=== PATIENT | female | born 1995 | race American Indian/Alaskan Native ===

== ENCOUNTER 2018-05-15 15:11 | Emergency (ER) | payer MEDICAID, OTHER ==
--- NOTE | 2018-05-15 15:48 | ED PDOC ---
Arrival/HPI - General Time Seen by Provider: 05/15/18 15:18 Historian: Patient - History of Present Illness Narrative History of Present Illness (Text): 05/15/18 15:44 22 y/o female, no significant pmh, , LMP 01/28/2018, approx. 16 weeks , last bowel movement this morning, c/o epigastric pain with nausea/ vomiting started today. Aching pain, on and off, epigastric pain, no flank pain , no rash, no diarrhea, no fever or chills, no headache or neck stiffness, no diarrhea, no pelvic pain, no vaginal bleeding or discharge, no other medical or psychological complaints. Past Medical History - Provider Review Nursing Documentation Reviewed: Yes - Tetanus Immunization Tetanus Immunization: Unknown - Genitourinary/Gynecological Hx Urinary Tract Infection: Yes - Psychiatric Hx Psychophysiologic Disorder: No Hx Substance Use: No - Past Surgical History Past Surgical History: No Previous - Suicidal Assessment Feels Threatened In Home Enviroment: No Family/Social History - Physician Review Nursing Documentation Reviewed: Yes Family/Social History: Unknown Family HX Smoking Status: Heavy Smoker > 10 Cigarettes Daily Hx Alcohol Use: No Hx Substance Use: No Allergies/Home Meds Allergies/Adverse Reactions: Allergies MUSHROOM Allergy (Uncoded 02/27/15 10:47) SWELLING Review of Systems - Review of Systems Constitutional: absent: Fatigue, Fevers Eyes: absent: Vision Changes ENT: absent: Hearing Changes Respiratory: absent: SOB, Cough Cardiovascular: absent: Chest Pain Gastrointestinal: Abdominal Pain, Nausea, Vomiting. absent: Diarrhea Musculoskeletal: absent: Arthralgias Skin: absent: Rash, Pruritis Neurological: absent: Headache, Dizziness Psychiatric: absent: Anxiety, Depression, Suicidal Ideation Physical Exam Vital Signs Reviewed: Yes Vital Signs Pulse Resp BP Pulse Ox 05/15/18 15:13 76 18 122/78 99 Temperature: Other (98.5) Blood Pressure: Normal Pulse: Regular Respiratory Rate: Normal Appearance: Positive for: Well-Appearing, Non-Toxic, Comfortable Pain Distress: None Mental Status: Positive for: Alert and Oriented X 3 - Systems Exam Head: Present: Atraumatic, Normocephalic Pupils: Present: PERRL Extroacular Muscles: Present: EOMI Conjunctiva: Present: Normal Mouth: Present: Moist Mucous Membranes Neck: Present: Normal Range of Motion Respiratory/Chest: Present: Clear to Auscultation, Good Air Exchange. No: Respiratory Distress, Accessory Muscle Use Cardiovascular: Present: Regular Rate and Rhythm, Normal S1, S2. No: Murmurs Abdomen: Present: Tenderness (epigastric tenderness), Other (negative barry sign, no flank tenderness, negative rovsign and negative mcburney ). No: Distention, Peritoneal Signs, Rebound, Guarding Back: Present: Normal Inspection Upper Extremity: Present: Normal Inspection. No: Cyanosis, Edema Lower Extremity: Present: Normal Inspection. No: Edema Neurological: Present: GCS=15, CN II-XII Intact, Speech Normal Skin: Present: Warm, Dry, Normal Color. No: Rashes Psychiatric: Present: Alert, Oriented x 3, Normal Insight, Normal Concentration Medical Decision Making ED Course and Treatment: 05/15/18 15:47 -Labs/lipase/betahcg/type and screen/ua -IVF/pepcid/reglan -Observe and reassess 05/15/18 16:15 -I was noted by the EGG SEPARATOR Phyllis Pool, pt. left the ER and saw her walking out , refused to stay for labs and treatment, didn't stay for discussion or wait for me, would place as left without completion of treatment. - Medication Orders Current Medication Orders: Discontinued Medications Famotidine (Pepcid) 20 mg IVP STAT STA Stop: 05/15/18 16:05 Sodium Chloride (Sodium Chloride 0.9%) 1,000 mls @ 999 mls/hr IV .Q1H1M STA Stop: 05/15/18 17:04 Metoclopramide HCl (Reglan) 10 mg IVP STAT STA Stop: 05/15/18 16:05 - PA / MANAGER JAVA / Resident Statement MD/DO has reviewed & agrees with the documentation as recorded. Disposition/Present on Arrival - Present on Arrival Any Indicators Present on Arrival: Yes History of DVT/PE: No History of Uncontrolled Diabetes: No Urinary Catheter: No History of Decub. Ulcer: No History Surgical Site Infection Following: None - Disposition Have Diagnosis and Disposition been Completed?: Yes Diagnosis: Abdominal pain Disposition: LEFT W/O TREATMENT - ER ONLY Disposition Time: 16:16 Condition: GOOD Forms: [employer] (Kiswahili)
[2018-05-15 15:56] VITALS: BMI 26.7
[2018-05-15] MEDS ORDERED: Sodium Chloride 0.9% 1,000 ML IV STA (16:04)
[2018-05-15 16:12] VITALS: BP 122/78; PULSE 76; RESP 18; O2SAT 99
== END 2018-05-15 16:11 | disposition left against medical advice (07) ==
LOC: ED 15:11
DX: O26.892 Other specified pregnancy related conditions, second trimester (principal); Z3A.16 16 weeks gestation of pregnancy; R10.13 Epigastric pain